=== PATIENT | female | born 1950 | race Caucasian/White ===

== ENCOUNTER 2017-11-18 10:14 | Emergency (ER) | payer MEDICARE ==
[2017-01-25 11:06] VITALS: Wt 103.4 kg
[~2017-11-18 10:14] MED LIST: ALB6.7R INH; AMOX-559 PO; CIPR-214 PO; CITA-139 PO; CITA-141 PO; DICY20TA70 PO; ERGO500037 PO; FAMO20TA28 PO; FLU150 PO; FLUT16SP19 ENA; FLUT9.9S; HYDR-2966 PO; HYDR-385 PO; HYDR12.561 PO; IBUP800T37 PO; LEVO150T78 PO; LEVO175T42 PO; NAPR220C12 PO; ONDA4TAB97 PO; OXYGENHOME INH; SIMV-49 PO; ZOLP-360 PO; [UNRECOGNIZED DRUG - CODE] PO
--- NOTE | 2017-11-18 10:18 | ER Report ---
History and Physical Time Seen By MD: 10:18 HPI/ROS CHIEF COMPLAINT: Epigastric abdominal pain HISTORY OF PRESENT ILLNESS: Patient is a 67-year-old female with complaint of epigastric abdominal pain since Saturday but worsening today. Patient feels nauseous but does not vomit. She has a history of a Pedro fundoplication in 2010 and states that she "has not been able to vomit since then" she does have issues with swallowing occasionally. She denies any chest pain or chest pressure. She denies fevers or chills. She denies any constipation or diarrhea. She denies any palliative or provoking features with regard to the abdominal pain. REVIEW OF SYSTEMS: Constitutional: [No fever, no chills.] Eyes: [No discharge.] ENT: [No sore throat.] Cardiovascular: [No chest pain, no palpitations.] Respiratory: [No cough, no shortness of breath.] Gastrointestinal: [No abdominal pain, no vomiting.] Genitourinary: [No hematuria.] Musculoskeletal: [No back pain.] Skin: [No rashes.] Neurological: [No headache.] Allergies: Coded Allergies: Opioids - Morphine Analogues (Verified Allergy, Severe, hives, short of breath, 11/18/17) neomycin (Verified Allergy, Intermediate, RASH, 11/18/17) promethazine (Verified Allergy, Intermediate, MENTAL STATUS CHANGES, ) LETHARGY aspirin (Verified Allergy, Unknown, tinnitus, itch, vomiting, 11/18/17) Home Meds Active Scripts Sucralfate (CARAFATE) 1 Gm/10 Ml Oral.susp, 1 GM PO QID, #400 ML 0 Refills Prov:BEKAH BENEDICT MD 11/18/17 Metoclopramide Hcl (REGLAN) 10 Mg Tablet, 10 MG PO QID for Nausea, #30 TAB 0 Refills Prov:BEKAH BENEDICT MD 11/18/17 Levothyroxine Sodium (LEVOTHYROXINE SODIUM) 175 Mcg Tablet, 1 TAB PO QDAY, #30 TAB 11 Refills Prov:EVELINE SHANNON MD 04/09/17 Simvastatin (SIMVASTATIN) 20 Mg Tablet, 1 TAB PO HS, #30 TAB 11 Refills Prov:EVELINE SHANNON MD 03/12/17 Citalopram Hydrobromide (CITALOPRAM HBR) 40 Mg Tablet, 1 TAB PO QDAY, #30 TAB 5 Refills Prov:EVEILNE SHANNON MD 11/28/16 Fluticasone Prop 50 Mcg Ns (FLONASE 50 MCG NS) 16 Gm Tucker.susp, 0 GM OSIEL QDAY, #1 BOTTLE Use 1 spray each nostril daily. Prov:LATOYA WISE MD 11/13/16 Albuterol Sulfate (PROVENTIL HFA) 6.7 Gm Inh, 2 PUFF INH Q4-6H Y for shortness of breath, #1 CART 11 Refills Prov:EVELINE SHANNON MD 06/11/16 Hydrochlorothiazide (HYDROCHLOROTHIAZIDE) 25 Mg Tablet, 1 TAB PO QDAY, #30 TAB 11 Refills Prov:EVELINE SHANNON MD 05/08/16 Reported Medications Ibuprofen (IBUPROFEN) 800 Mg Tablet, 1 TAB PO TID Y for PAIN, TAB 01/25/17 Oxygen (OXYGEN) Inha, 1.5 L INH HS, L and prn durig daytime 08/11/15 Discontinued Scripts Zolpidem Tartrate (ZOLPIDEM TARTRATE) 5 Mg Tablet, 1 TAB PO HS Y for sleeplessness, #30 TAB 1 Refill Prov:EVELINE SHANNON MD 05/29/16 Past Medical/Surgical History Past medical history for DVT in 1997, history of hyperlipidemia, hypertension, myocardial infarction based on EKG changes, history of asthma, history of reflux disease, irritable bowel syndrome and peptic ulcer disease. History of fibromyalgia, osteoarthritis, hypothyroidism history of hiatal hernia surgery in 2010 with Pedro fundoplication, history of hysterectomy, oophorectomy and tubal ligation Hx Smoking: No Smoking Status: Never Smoker Hx Substance Use Disorder: No Hx Alcohol Use: No Constitutional Vital Sign - Last 24 Hours 11/18/17 11/18/17 11/18/17 11/18/17 10:26 10:26 10:29 10:30 Temp 98.7 Pulse 78 76 Resp 16 B/P (MAP) 149/112 (124) 149/112 157/97 (117) Pulse Ox 95 94 O2 Delivery Room Air 11/18/17 11/18/17 11/18/17 11/18/17 10:44 10:59 11:00 11:14 Pulse 71 65 62 Resp 26 20 8 B/P (MAP) 151/77 (101) Pulse Ox 92 93 89 11/18/17 11/18/17 11/18/17 11/18/17 11:29 11:49 12:04 12:19 Pulse 57 59 67 54 Resp 14 9 16 15 Pulse Ox 96 97 97 11/18/17 11/18/17 11/18/17 12:34 12:49 13:04 Pulse 55 55 57 Resp 15 14 47 Pulse Ox 97 96 97 Physical Exam General/Constitutional: Patient is awake, alert, nontoxic and in no acute respiratory distress. Head: Normocephalic and atraumatic. Eyes: Conjunctival clear, Sclera are clear and anicteric. Ears:External canals are clear. Tympanic membranes are clear with normal landmarks and light reflex. Nares: No rhinorrhea or bleeding. Turbinates are pink and moist. Oropharyngeal: Mucous membranes are moist. Neck: Supple, no adenopathy. Cardiovascular: Heart is regular rate and rhythm without audible murmurs, rubs or gallops. Pulmonary: Lungs are clear to auscultation bilaterally. There are no wheezes, rales, or rhonchi. Chest rise is symmetrical Abdomen: Protuberant abdomen. Patient has tenderness to the epigastric region there is no peritoneal signs no lower quadrant tenderness. Patient has voluntary guarding to the epigastrium Extremities: No gross deformities, No peripheral cyanosis. Able to move all 4 extremities. Neuro: Alert and oriented X3, Cranial nerves 2 thru 12 are intact and symmetrical. Patient has normal gait. Skin: No rashes, skin is warm dry and well perfused. Medical Decision Making Data Points Result Diagram: 11/18/17 1050 11/18/17 1050 Laboratory Hematology Test 11/18/17 10:50 Red Blood Count 4.91 M/uL (4.17-5.56) Mean Corpuscular Volume 92.4 fL (80.0-96.0) Mean Corpuscular Hemoglobin 31.4 pg (26.0-33.0) Mean Corpuscular Hemoglobin Concent 34.0 g/dL (32.0-36.0) Red Cell Distribution Width 13.3 % (11.5-14.5) Mean Platelet Volume 8.1 fL (7.2-11.1) Neutrophils (%) (Auto) 57.8 % (39.4-72.5) Lymphocytes (%) (Auto) 30.9 % (17.6-49.6) Monocytes (%) (Auto) 8.0 % (4.1-12.4) Eosinophils (%) (Auto) 2.7 % (0.4-6.7) Basophils (%) (Auto) 0.6 % (0.3-1.4) Nucleated RBC Relative Count (auto) 0.0 /100WBC Neutrophils # (Auto) 4.1 K/uL (2.0-7.4) Lymphocytes # (Auto) 2.2 K/uL (1.3-3.6) Monocytes # (Auto) 0.6 K/uL (0.3-1.0) Eosinophils # (Auto) 0.2 K/uL (0.0-0.5) Basophils # (Auto) 0.0 K/uL (0.0-0.1) Nucleated RBC Absolute Count (auto) 0.00 K/uL Urine Color Yellow Urine Clarity Cloudy Urine pH 5.0 pH (4.8-9.5) Urine Specific [place] 1.020 Urine Protein Negative mg/dL (NEGATIVE) Urine Glucose (UA) Negative mg/dL (NEGATIVE) Urine Ketones Negative mg/dL (NEGATIVE) Urine Blood Negative (NEGATIVE) Urine Nitrite Negative (NEGATIVE) Urine Bilirubin Negative (NEGATIVE) Urine Urobilinogen Negative mg/dL (0.2-1.9) Urine Leukocyte Esterase Negative (NEGATIVE) Urine RBC 1 /HPF (0-2/HPF) Urine WBC 5 /HPF (0-5/HPF) Urine Squamous Epithelial Cells Many /LPF (</=FEW) Urine Bacteria Few /HPF (NONE-FEW) Urine Mucus Few /HPF (NONE-FEW) Sodium Level 138 mmol/L (137-145) Potassium Level 4.0 mmol/L (3.5-5.0) Chloride Level 103 mmol/L (98-107) Carbon Dioxide Level 26 mmol/L (22-31) Blood Urea Nitrogen 13 mg/dl (7-18) Creatinine 1.20 mg/dl (0.52-1.04) Glomerular Filtration Rate Calc 44.9 Random Glucose 96 mg/dl (75-110) Calcium Level 9.0 mg/dl (8.4-10.2) Total Bilirubin 0.4 mg/dl (0.2-1.3) Aspartate Amino Transf (AST/SGOT) 16 U/L (0-35) Alanine Aminotransferase (ALT/SGPT) 20 U/L (0-56) Alkaline Phosphatase 102 U/L (0-126) Troponin I < 0.012 ng/ml Total Protein 6.9 gm/dl (6.3-8.2) Albumin 3.6 g/dl (3.5-5.0) Amylase Level 69 U/L (0-110) Lipase 73 U/L (23-300) Helicobacter pylori IgG Antibody Negative (NEGATIVE) Chemistry Test 11/18/17 10:50 White Blood Count 7.0 k/uL (4.5-11.0) Red Blood Count 4.91 M/uL (4.17-5.56) Hemoglobin 15.4 g/dL (12.0-16.0) Hematocrit 45.3 % (34.0-47.0) Mean Corpuscular Volume 92.4 fL (80.0-96.0) Mean Corpuscular Hemoglobin 31.4 pg (26.0-33.0) Mean Corpuscular Hemoglobin Concent 34.0 g/dL (32.0-36.0) Red Cell Distribution Width 13.3 % (11.5-14.5) Platelet Count 262 K/uL (150-450) Mean Platelet Volume 8.1 fL (7.2-11.1) Neutrophils (%) (Auto) 57.8 % (39.4-72.5) Lymphocytes (%) (Auto) 30.9 % (17.6-49.6) Monocytes (%) (Auto) 8.0 % (4.1-12.4) Eosinophils (%) (Auto) 2.7 % (0.4-6.7) Basophils (%) (Auto) 0.6 % (0.3-1.4) Nucleated RBC Relative Count (auto) 0.0 /100WBC Neutrophils # (Auto) 4.1 K/uL (2.0-7.4) Lymphocytes # (Auto) 2.2 K/uL (1.3-3.6) Monocytes # (Auto) 0.6 K/uL (0.3-1.0) Eosinophils # (Auto) 0.2 K/uL (0.0-0.5) Basophils # (Auto) 0.0 K/uL (0.0-0.1) Nucleated RBC Absolute Count (auto) 0.00 K/uL Urine Color Yellow Urine Clarity Cloudy Urine pH 5.0 pH (4.8-9.5) Urine Specific [place] 1.020 Urine Protein Negative mg/dL (NEGATIVE) Urine Glucose (UA) Negative mg/dL (NEGATIVE) Urine Ketones Negative mg/dL (NEGATIVE) Urine Blood Negative (NEGATIVE) Urine Nitrite Negative (NEGATIVE) Urine Bilirubin Negative (NEGATIVE) Urine Urobilinogen Negative mg/dL (0.2-1.9) Urine Leukocyte Esterase Negative (NEGATIVE) Urine RBC 1 /HPF (0-2/HPF) Urine WBC 5 /HPF (0-5/HPF) Urine Squamous Epithelial Cells Many /LPF (</=FEW) Urine Bacteria Few /HPF (NONE-FEW) Urine Mucus Few /HPF (NONE-FEW) Glomerular Filtration Rate Calc 44.9 Calcium Level 9.0 mg/dl (8.4-10.2) Total Bilirubin 0.4 mg/dl (0.2-1.3) Aspartate Amino Transf (AST/SGOT) 16 U/L (0-35) Alanine Aminotransferase (ALT/SGPT) 20 U/L (0-56) Alkaline Phosphatase 102 U/L (0-126) Troponin I < 0.012 ng/ml Total Protein 6.9 gm/dl (6.3-8.2) Albumin 3.6 g/dl (3.5-5.0) Amylase Level 69 U/L (0-110) Lipase 73 U/L (23-300) Helicobacter pylori IgG Antibody Negative (NEGATIVE) Urinalysis Test 11/18/17 10:50 Urine Color Yellow Urine Clarity Cloudy Urine pH 5.0 pH (4.8-9.5) Urine Specific [place] 1.020 Urine Protein Negative mg/dL (NEGATIVE) Urine Glucose (UA) Negative mg/dL (NEGATIVE) Urine Ketones Negative mg/dL (NEGATIVE) Urine Blood Negative (NEGATIVE) Urine Nitrite Negative (NEGATIVE) Urine Bilirubin Negative (NEGATIVE) Urine Urobilinogen Negative mg/dL (0.2-1.9) Urine Leukocyte Esterase Negative (NEGATIVE) Urine RBC 1 /HPF (0-2/HPF) Urine WBC 5 /HPF (0-5/HPF) Urine Squamous Epithelial Cells Many /LPF (</=FEW) Urine Bacteria Few /HPF (NONE-FEW) Urine Mucus Few /HPF (NONE-FEW) EKG/Imaging EKG Interpretation EKG shows right bundle branch block with normal ventricular rate of 69 bpm Monitor Interpretation: Normal Sinus Rhythm Imaging FACILITY: [facility] [place] PATIENT NAME: Catherine Rodriges : 1950 MR: [id number] V: [id number] EXAM DATE: ORDERING PHYSICIAN: BEKAH BENEDICT TECHNOLOGIST: Location: [facility] [place] Patient: Catherine Rodriges : 1950 Visit/Account:[id number] Date of Sevice: 11/18/2017 CT abdomen and pelvis with IV contrast Indication: Epigastric pain Comparison: CT examination from October 2016. Technique: Axial CT images were obtained through the abdomen and pelvis during injection of nonionic iodinated intravenous contrast. Reformatted coronal and sagittal images were also obtained. One of the following dose optimization techniques was utilized in the performance of this exam: Automated exposure control; adjustment of the mA and/or kV according to the patient's size ; or use of an iterative reconstruction technique. Specific details can be referenced in the facility's radiology CT exam operational policy. Contrast: 75 ml of Isovue-370 IV contrast. Findings: Lower lung roberts: Mild hypoventilatory changes are seen in the left lung base. Surgical material is noted status post operative change at the GE junction. Redemonstration is noted of a hiatal hernia. Mild circumferential wall thickening is noted of the distal esophagus indicative of esophagitis. No evidence of fat stranding in the posterior mediastinal fat. Liver: No focal parenchymal abnormality of the liver. Biliary: The bladder is been surgically removed. No evidence of biliary abnormality. Pancreas: No acute finding Spleen: Normal appearance. Adrenal glands: Unremarkable Kidneys / retroperitoneum: Stable cortical thinning on the left. . Mild right hydronephrosis. Punctate submillimeter stone is noted in the midportion right ureter. Bladder is without wall thickening or focal stone. Bowel / peritoneum / mesenteries: Small and large intestine is stable. There are pandiverticular changes throughout the colon, most severe in the sigmoid colon without evidence of new diverticulitis. No free air, fluid collection or abscess. Lymph node assessment: No pathologic adenopathy identified. Pelvic structures: Status post hysterectomy. Vessels: Mild atherosclerotic calcifications seen throughout a nonaneurysmal abdominal aorta and branches. Musculoskeletal / Body wall: No acute or aggressive osseous abnormality. IMPRESSION: 1. Stable postoperative change at the GE junction from what appears to be a fundoplication. Persistent small hiatal hernia. Mild low-density circumferential wall thickening of the distal esophagus suggestive of changes from esophagitis. 2. Mild right hydronephrosis. There is a punctate submillimeter stone within the midportion of the right ureter. 3. Arredondo-colonic diverticulosis. Report Dictated By: Jd Hunter MD at 11/18/2017 12:12 PM Report E-Signed By: Jd Hunter MD at 11/18/2017 12:23 PM WSN:[email or web address] ED Course/Re-evaluation ED Course Patient with prior history of Pedro fundoplication. Now having epigastric abdominal pain. Plan will be abdominal workup including CT scan of the abdomen and pelvis. We will give pain medication as well as antiemetics. Disposition pending workup Decision to Disposition Date: Nov 18, 2017 Decision to Disposition Time: 13:02 Depart Departure Latest Vital Signs Vital Signs Date Time Temp Pulse Resp B/P (MAP) Pulse Ox O2 Delivery O2 Flow Rate FiO2 11/18/17 13:04 57 47 97 11/18/17 11:00 151/77 (101) 11/18/17 10:26 98.7 Room Air Impression: Primary Impression: Esophagitis Condition: Improved Disposition: HOME OR SELF-CARE Referrals: EVELINE SHANNON MD (PCP) 1 Week if symptoms persist New Scripts Sucralfate (CARAFATE) 1 Gm/10 Ml Oral.susp 1 GM PO QID, #400 ML 0 Refills Prov: BEKAH BENEDICT MD 11/18/17 Metoclopramide Hcl (REGLAN) 10 Mg Tablet 10 MG PO QID for Nausea, #30 TAB 0 Refills Prov: BEKAH BENEDICT MD 11/18/17 Patient Instructions: Corrosive Esophagitis (GEN) Additional Instructions: Resume your PPI medication and take as instructed for the next 2 weeks then as needed BEKAH BENEDICT MD Nov 18, 2017 10:18
[2017-11-18] MEDS ORDERED: FAMOTIDINE(*) 20MG/50ML PREMIX 50 ML IVPB ONE (10:34)
[2017-11-18] MEDS ORDERED: LR(*) 1000 ML BAG 1,000 ML IV ONE (10:34)
[2017-11-18] MEDS ORDERED: KETOROLAC 30 MG/ML VIAL IVP ONE (10:35)
[2017-11-18] MEDS ORDERED: ONDANSETRON 4 MG/2 ML VIAL IVP ONE (10:35)
--- NOTE | 2017-11-18 10:53 | EKG ---
FACILITY: [facility] - [place] PATIENT NAME: ISSAC SUERO : [id number] MR: [id number] V: [id number] EXAM DATE: ORDERING PHYSICIAN: BEKAH BENEDICT TECHNOLOGIST: MAGGY Test Reason : ABD PAIN Blood Pressure : / mmHG Vent. Rate : 069 BPM Atrial Rate : 069 BPM P-R Int : 178 ms QRS Dur : 144 ms QT Int : 478 ms P-R-T Axes : 050 -27 014 degrees QTc Int : 512 ms Normal sinus rhythm Right bundle branch block Abnormal ECG When compared with ECG of 24-JAN-2017 22:33, Right bundle branch block is now present Confirmed by KINGA FLORIAN ([id number]) on 11/18/2017 11:46:07 AM Referred By: JAK Confirmed By:KINGA FLORIAN
[2017-11-18] MEDS ORDERED: IOPAMIDOL 76% 75 ML INFUS BTL 75 ML ONE (10:59)
[2017-11-18 11:00] VITALS: BP 151/77
[2017-11-18 11:12] LABS: PLATELET COUNT, AUTOMATED 262 K/uL (150-450)
--- NOTE | 2017-11-18 12:27 | RADIOLOGY IMAGING REPORT ---
FACILITY: [facility] - [place] PATIENT NAME: Catherine Rodriges : 1950 MR: [id number] V: [id number] EXAM DATE: ORDERING PHYSICIAN: BEKAH BENEDICT TECHNOLOGIST: Location: [facility] Patient: Catherine Rodriges : 1950 Visit/Account:[id number] Date of Sevice: 11/18/2017 CT abdomen and pelvis with IV contrast Indication: Epigastric pain Comparison: CT examination from October 2016. Technique: Axial CT images were obtained through the abdomen and pelvis during injection of nonioni c iodinated intravenous contrast. Reformatted coronal and sagittal images were also obtained. One of the following dose optimization techniques was utilized in the performance of this exam: Automated e xposure control; adjustment of the mA and/or kV according to the patient's size; or use of an iterati ve reconstruction technique. Specific details can be referenced in the facility's radiology CT exam operational policy. Contrast: 75 ml of Isovue-370 IV contrast. Findings: Lower lung roberts: Mild hypoventilatory changes are seen in the left lung base. Surgical material is noted status post operative change at the GE junction. Redemonstration is noted of a hiatal hernia. Mild circumferential wall thickening is noted of the distal esophagus indicativ e of esophagitis. No evidence of fat stranding in the posterior mediastinal fat. Liver: No focal parenchymal abnormality of the liver. Biliary: The bladder is been surgically removed. No evidence of biliary abnormality. Pancreas: No acute finding Spleen: Normal appearance. Adrenal glands: Unremarkable Kidneys / retroperitoneum: Stable cortical thinning on the left. . Mild right hydronephrosis. Punct ate submillimeter stone is noted in the midportion right ureter. Bladder is without wall thickening or focal stone. Bowel / peritoneum / mesenteries: Small and large intestine is stable. There are pandiverticular velia nges throughout the colon, most severe in the sigmoid colon without evidence of new diverticulitis. No free air, fluid collection or abscess. Lymph node assessment: No pathologic adenopathy identified. Pelvic structures: Status post hysterectomy. Vessels: Mild atherosclerotic calcifications seen throughout a nonaneurysmal abdominal aorta and bran ches. Musculoskeletal / Body wall: No acute or aggressive osseous abnormality. IMPRESSION: 1. Stable postoperative change at the GE junction from what appears to be a fundoplication. Persist ent small hiatal hernia. Mild low-density circumferential wall thickening of the distal esophagus johnson ggestive of changes from esophagitis. 2. Mild right hydronephrosis. There is a punctate submillimeter stone within the midportion of the right ureter. 3. Arredondo-colonic diverticulosis. Report Dictated By: Jd Hunter MD at 11/18/2017 12:12 PM Report E-Signed By: Jd Hunter MD at 11/18/2017 12:23 PM WSN:[email or web address]
[2017-11-18] MEDS ORDERED: METO-734 PO (13:05)
[2017-11-18] MEDS ORDERED: SUCR1ORA17 PO (13:05)
== END 2017-11-18 13:26 | disposition home or self-care (01) ==
LOC: ER 10:18
DX: K20.9 Esophagitis, unspecified (principal); R94.31 Abnormal electrocardiogram [ECG] [EKG]; I45.10 Unspecified right bundle-branch block; K44.9 Diaphragmatic hernia without obstruction or gangrene; N13.30 Unspecified hydronephrosis; K57.30 Diverticulosis of large intestine without perforation or abscess without bleeding
CPT/HCPCS: 74177; 81001; 82150; 83690; 84484; 85025; 86677; 93005; 96365; 96366; 96375; 99284; J1885; J2405; J3490; J7120; Q9967; 82040; 82247; 82310; 82374; 82435; 82565; 82947; 84075; 84132; 84155; 84295; 84450; 84460; 84520

== ENCOUNTER → 2018-07-25 | Outpatient (CLI) | payer MEDICARE ==
[2017-01-25 11:06] VITALS: BMI 41.4
[~2018-07-25] MED LIST changes: -CITA-139 PO; +CITA-145 PO; +IOPAMIDOL 76% 100 ML INFUS BTL 100 ML ONE; +METO-734 PO; +PNEU0.5D3 IM; +SUCR1ORA17 PO
--- NOTE | 2018-07-25 12:02 | RADIOLOGY IMAGING REPORT ---
FACILITY: [facility] PATIENT NAME: Catherine Rodriges : 1950 MR: [id number] V: [id number] EXAM DATE: ORDERING PHYSICIAN: VISHNU CHAVARRIA TECHNOLOGIST: Location: [facility] Patient: Catherine Rodriges : 1950 Visit/Account:[id number] Date of Sevice: 07/25/2018 ABDOMEN/PELVIS WITH CONTRAST HISTORY: Hiatal hernia repair, abdomen pain, difficulty swallowing TECHNIQUE: Following administration of IV contrast contiguous axial images acquired through the abdom en/pelvis. Coronal and sagittal reformatting also performed.Dose Lowering Technique One of the following dose optimization techniques was utilized in the performance of this exam: Autom ated exposure control; adjustment of the mA and/or kV according to the patient's size; or use of an i terative reconstruction technique. Specific details can be referenced in the facility's radiology C T exam operational policy. CONTRAST: 90 mL Isovue-370 COMPARISON: November 18, 2017 FINDINGS: Visualized lung bases: There is a small pericardial effusion. There is linear scarring in the left lung base and a tiny left pleural effusion versus pleural thickening slightly increased when compared the prior study Hepatobiliary: There are postsurgical changes from a cholecystectomy Spleen: Slightly lobular contour to the spleen although similar to the prior study Adrenals: Negative. Pancreas: Negative. Kidneys ureters or bladder: There is a lobular contour to both kidneys. This extrarenal pelvis on th e right. No evidence of hydronephrosis or hydroureter the bladder is mostly decompressed therefore n ot ideally evaluated Genitalia: Hysterectomy GI: There is diverticulosis throughout the colon although no CT evidence of acute diverticulitis There are postsurgical changes from a hiatal hernia repair. There is circumferential thickening of t he distal esophagus which has increased when compared to the prior study. There is now increased wal l thickening of the gastric fundus and body which may in part be related to underdistention versus in flammation/infection. There is however increasing infiltrative changes seen in the fat surrounding t he hiatal hernia repair and extends laterally towards the spleen . There appears to be two small tr act extending from the lateral wall of the gastric fundus adjacent to the repair extending towards th is area of infiltrative changes within the fat just anterior to the spleen. This is best appreciated on axial images 93 and 107 of series 3 and coronal images 52 through 54. No extraluminal air is tom ntified.. Vessels/spaces/nodes: Mild atherosclerotic calcifications throughout the abdominal aorta and branch vessels Bones/soft tissues: No aggressive appearing bone lesions are seen Additional findings: None pertinent. IMPRESSION: There are postsurgical changes from hiatal hernia repair. There is circumferential thickening of the distal esophagus which is increased when compared to the prior study. There is now increased wall t hickening of the gastric fundus and body which may in part be related to underdistention however more prominent thickening is seen adjacent to the hiatal hernia repair. Infiltrative changes are also no gregory in the fat extending laterally from the hernia repair extending just anterior to the spleen. The re appear to be two small soft tissue density tracts extending from the lateral wall of the gastric f undus adjacent to the repair which are described above. These findings are concerning for an infecti ous/inflammatory process. A discrete abscess is not seen. Extraluminal air is not identified Small pericardial effusion Tiny left pleural effusion versus pleural thickening slightly increased when compared to the prior [facility] Colonic diverticulosis although no CT evidence of acute diverticulitis Results were called to VISHNU CHAVARRIA at 07/25/2018 11:56 AM. Report Dictated By: Tamia Frederick MD at 07/25/2018 11:16 AM Report E-Signed By: Tamia luu MD at 07/25/2018 11:58 AM WSN:[email or web address]
== END ==
LOC: CT 03:31
PROVIDERS: ATTEND Internal Medicine Gastroenterology
DX: K44.9 Diaphragmatic hernia without obstruction or gangrene (principal); I31.3 Pericardial effusion (noninflammatory); J91.8 Pleural effusion in other conditions classified elsewhere; K57.30 Diverticulosis of large intestine without perforation or abscess without bleeding
CPT/HCPCS: 74177; Q9967

== ENCOUNTER → 2018-12-09 | Outpatient (CLI) | payer MEDICARE ==
[2017-01-25 11:06] VITALS: BMI 41.4
[~2018-12-09] MED LIST changes: +BUTA1CAP6 PO; -IOPAMIDOL 76% 100 ML INFUS BTL 100 ML ONE; +LEVO200T50 PO; +OMEP40CA48 PO; +RANI150C17 PO
== END ==
LOC: LAB 15:38
PROVIDERS: ATTEND Nurse Practitioner Primary Care
DX: E03.9 Hypothyroidism, unspecified (principal)
CPT/HCPCS: 36415; 84443

== ENCOUNTER → 2019-01-15 | Outpatient (CLI) | payer MEDICARE ==
[2017-01-25 11:06] VITALS: BMI 41.4
[~2019-01-15] MED LIST changes: +BENZ200C15 PO; +CHOL10005 PO; +GUAI120L3 PO; +IOPAMIDOL 76% 100 ML INFUS BTL 100 ML ONE; +LEVO25TA61 PO; +NS(*) 0.9% 50 ML BAG 50 ML ONE
--- NOTE | 2019-01-15 17:40 | RADIOLOGY IMAGING REPORT ---
FACILITY: [facility] PATIENT NAME: Catherine Rodriges : 1950 MR: [id number] V: [id number] EXAM DATE: [id number] ORDERING PHYSICIAN: ALICIA SADLER TECHNOLOGIST: Location: [facility] - [place] Patient: Catherine Rodriges : 1950 Visit/Account:[id number] Date of Sevice: 01/15/2019 CT ANGIOGRAM OF THE CHEST WITH INTRAVENOUS CONTRAST, PE PROTOCOL DATE OF EXAM: 01/15/2019 16:03 COMPARISON: Chest radiographs of the same day. INDICATION: elevated D-dimer. TECHNIQUE: Contrast enhanced chest CT performed during the injection of 75 ml of Isovue-370. Three-d imensional (MIP) reconstructions were performed. FINDINGS: Negative for pulmonary arterial embolus. Thyroid: Not diagnostically imaged. Thoracic inlet: No thoracic inlet adenopathy. Heart and great vessels: Heart size is at the upper limits of normal. Mediastinum and kentrell: No mediastinal or hilar adenopathy. Lungs and pleura: Mild scattered atelectasis and/or scar at the lung bases. No effusion, consolidat ion, or pneumothorax. There are a few small scattered cysts. Breast and axilla: Breast tissue is incompletely imaged. Bones and soft tissues: No acute osseous abnormality. Upper abdomen: Small hiatal hernia. IMPRESSION: Negative for pulmonary arterial embolus. One of the following dose optimization techniques was utilized in the performance of this exam: Autom ated exposure control; adjustment of the mA and/or kV according to the patient's size; or use of an i terative reconstruction technique. Specific details can be referenced in the facility's radiology C T exam operational policy. Report Dictated By: Mushtaq Harris MD at 01/15/2019 5:24 PM Report E-Signed By: Mushtaq Harris MD at 01/15/2019 5:35 PM WSN:[email or web address]
== END ==
LOC: CT 15:59
PROVIDERS: ATTEND Emergency Medicine
DX: R79.89 Other specified abnormal findings of blood chemistry (principal)
CPT/HCPCS: 71275; J7050; Q9967

== ENCOUNTER → 2019-01-15 | Outpatient (CLI) | payer MEDICARE ==
[2017-01-25 11:06] VITALS: BMI 41.4
[~2019-01-15] MED LIST changes: -IOPAMIDOL 76% 100 ML INFUS BTL 100 ML ONE; -NS(*) 0.9% 50 ML BAG 50 ML ONE
[2019-01-15 11:42] LABS: PLATELET COUNT, AUTOMATED 287 K/uL (150-450)
--- NOTE | 2019-01-15 14:00 | RADIOLOGY IMAGING REPORT ---
FACILITY: [facility] PATIENT NAME: Catherine Rodriges : 1950 MR: [id number] V: [id number] EXAM DATE: ORDERING PHYSICIAN: ALICIA SADLER TECHNOLOGIST: Location: [facility] [place] Patient: Catherine Rodriges : 1950 Visit/Account:[id number] Date of Sevice: 01/15/2019 Exam type: CHEST PA LAT History: Hypoxia Comparison: December 12, 2016. Findings: There is mild chronic elevation right hemidiaphragm. There is a prominent density in the right heart from a ganglion which likely represents a prominent epicardial fat pad and was present on the prior chest. There is no evidence of acute-appearing pulmonary consolidation, pleural effusions upon edema . The cardiac silhouette is enlarged but unchanged. There are surgical clips in the right upper jermaine drant of abdomen. IMPRESSION: 1. No acute cardiopulmonary process is seen Report Dictated By: Tamia Frederick MD at 01/15/2019 1:10 PM Report E-Signed By: Tamia Frederick MD at 01/15/2019 1:55 PM WSN:[email or web address]
--- NOTE | 2019-01-15 14:06 | RADIOLOGY IMAGING REPORT ---
[place] [facility] [place] NAME: Catherine Rodriges : 1950 MR: [id number] V: [id number] EXAM DATE: ORDERING PHYSICIAN: ALICIA SADLER TECHNOLOGIST: Location: [facility] Patient: Catherine Rodriges : 1950 Visit/Account:[id number] Date of Sevice: 01/15/2019 DEXA Scan Clinical history: Osteopenia. Comparison: DEXA scan from September 27, 2015. LUMBAR SPINE: The bone mineral density (BMD) measured from L1-L4 correlates with a Z-score of -1.4 and a T-score of -1.9 which is osteopenia as defined by the World Health Organization. The corresponding risk of fra cture in the lumbar spine is 3-4 times increased compared with a young adult reference population. T his value has increased by 2.8 % since the prior study. More than 5% change is considered significan t. HIP: Bone mineral density (BMD) measured in the LEFT total hip region correlates with a Z-score -1.3 and a T-score of -1.9 which is osteopenia as defined by the World Health Organization. The corresponding risk of fracture in the hip is 3-4 times increased compared to a young adult reference population. Th is value has decreased by 4.2 % since the prior study. More than 5% change is considered significant . T score left femoral neck -2.6 Bone mineral density (BMD) measured in the Femoral Neck region measures 0.682 g/cm?. IMPRESSION: 1. Lumbar spine: Osteopenia. There has been 2.8% increase in the bone mineral density since the pre vious exam. 2. Left Total Hip: Osteopenia. There has been 4.2% decrease in the bone mineral density since the p revious exam. 3. Femoral Neck: Bone Mineral Density is 0.682 g/cm? The next DEXA scan of this patient should include the following sites: L1-L4 and the left hip. FRAX? WHO Fracture Risk Assessment Tool link: <http://www.shef.ac.uk/FRAX/tool.jsp?locationValue=9> PLEASE NOTE: 1) The World Health Organization defines low BMD as follows: T-score Normal > -1 Osteopenia < -1 and > -2.5 Osteoporosis < -2.5 without fractures Established osteoporosis < -2.5 with fractures 2) In general, you may wish to consider: Diagnosis Treatment Follow-up DEXA Normal BMD Prevention 2-3 years Osteopenia Prevention/therapy 1-2 years Osteoporosis Therapy Yearly 3) Fracture risk estimated from the T-score is more accurate for vertebral fractures (often spontane ous) than for hip fractures. Report Dictated By: Tamia Frederick MD at 01/15/2019 1:55 PM Report E-Signed By: Tamia Frederick MD at 01/15/2019 1:59 PM KIERANN:[email or web address]
== END ==
LOC: LAB 11:09
PROVIDERS: ATTEND Emergency Medicine
DX: M85.80 Other specified disorders of bone density and structure, unspecified site (principal); J96.11 Chronic respiratory failure with hypoxia; E03.9 Hypothyroidism, unspecified; E78.5 Hyperlipidemia, unspecified; E55.9 Vitamin D deficiency, unspecified; I10 Essential (primary) hypertension; N20.0 Calculus of kidney; R79.89 Other specified abnormal findings of blood chemistry
CPT/HCPCS: 36415; 71046; 77080; 81001; 82040; 82247; 82306; 82310; 82374; 82435; 82465; 82565; 82607; 82947; 83036; 83718; 83880; 83970; 84075; 84132; 84155; 84295; 84443; 84450; 84460; 84478; 84520; 85025; 85379

== ENCOUNTER → 2019-01-26 | Outpatient (CLI) | payer MEDICARE ==
[2017-01-25 11:06] VITALS: BMI 41.4
[~2019-01-26] MED LIST changes: +CYA1000 PO
== END ==
LOC: RESP 10:01
PROVIDERS: ATTEND Emergency Medicine
DX: J96.11 Chronic respiratory failure with hypoxia (principal)
CPT/HCPCS: 94060; 94726; 94729

== ENCOUNTER → 2019-03-10 | Outpatient (CLI) | payer MEDICARE ==
[2017-01-25 11:06] VITALS: BMI 41.4
[~2019-03-10] MED LIST changes: +FLUT1DIS27 IH; +PNEI IM; +ROSU10TA PO
--- NOTE | 2019-03-17 10:04 | RADIOLOGY IMAGING REPORT ---
FACILITY: [facility] PATIENT NAME: ISSAC SUERO : [id number] MR: [id number] V: [id number] EXAM DATE: ORDERING PHYSICIAN: ALICIA SADLER TECHNOLOGIST: Janell Mayfield PROCEDURE: BILATERAL DIGITAL SCREENING MAMMOGRAM WITH CAD ASSISTED INTERPRETATION & 3D TOMOSYNTHESIS. REASON FOR STUDY: Screening. COMPARISON: [facility]. VIEWS OBTAINED: 2D & 3D full field CC & MLO projections. BREAST DENSITY: Scattered fibroglandular densities are present in both breasts. MAMMOGRAM FINDINGS: No masses or suspicious calcifications. IMPRESSION: BIRADS 1: Negative. DIAGNOSTIC CATEGORY 1--NEGATIVE. RECOMMENDATIONS: ROUTINE MAMMOGRAM AND CLINICAL EVALUATION IN 1YR. Dictated by: Mor Diamond M.D. on 03/11/2019 at 8:47 Transcribed by: VICTOR HUGO on 03/11/2019 at 9:49 Approved by: Diane Gonzalez M.D. on 03/17/2019 at 10:00 [facility]
== END ==
LOC: MAMO 00:48
PROVIDERS: ATTEND Emergency Medicine
DX: Z12.31 Encounter for screening mammogram for malignant neoplasm of breast (principal); Z80.3 Family history of malignant neoplasm of breast
CPT/HCPCS: 77063; 77067

== ENCOUNTER → 2019-03-17 | Outpatient (CLI) | payer MEDICARE ==
[2017-01-25 11:06] VITALS: BMI 41.4
== END ==
LOC: LAB 08:52
PROVIDERS: ATTEND Emergency Medicine
DX: E03.9 Hypothyroidism, unspecified (principal)
CPT/HCPCS: 36415; 84443

== ENCOUNTER → 2019-03-20 | Outpatient (CLI) | payer MEDICARE ==
[2017-01-25 11:06] VITALS: BMI 41.4
== END ==
LOC: RESP 20:09
PROVIDERS: ATTEND Emergency Medicine
DX: G47.33 Obstructive sleep apnea (adult) (pediatric) (principal); G47.61 Periodic limb movement disorder

== ENCOUNTER → 2019-04-07 | Outpatient (CLI) | payer MEDICARE ==
[2017-01-25 11:06] VITALS: BMI 41.4
--- NOTE | 2019-04-07 10:18 | RADIOLOGY IMAGING REPORT ---
FACILITY: [facility] PATIENT NAME: Catherine Rodriges : 1950 MR: [id number] V: [id number] EXAM DATE: ORDERING PHYSICIAN: ALICIA SADLER TECHNOLOGIST: Location: [facility] Patient: Catherine Rodriges : 1950 Visit/Account:[id number] Date of Sevice: 04/07/2019 US VENOUS LOWER EXT RT HISTORY: R leg swelling COMPARISON: None FINDINGS: Duplex sonographic images with segmental compressibility and evaluation of respiratory phasicity reve als no evidence of DVT. No mass or fluid collection. IMPRESSION: No sonographic evidence of DVT. Report Dictated By: Jd Hunter MD at 04/07/2019 10:08 AM Report E-Signed By: Jd Hunter MD at 04/07/2019 10:09 AM WSN:[id number]
== END ==
LOC: US 01:09
PROVIDERS: ATTEND Emergency Medicine
DX: M79.89 Other specified soft tissue disorders (principal)